=== PATIENT | female | born 1935 | race Caucasian/White ===

== ENCOUNTER 2023-08-11 06:16 | Day surgery (SDC) | payer OTHER, SELFPAY ==
[2023-08-11] VITALS (10 sets, daily range): BP systolic 97–147; BP diastolic 58–78; BMI 29.0
[2023-08-11] MEDS: NORMOSOL-R 1000 IV (11:11)
--- NOTE | 2023-08-11 15:07 | W.IMMPOSTOP ---
Surgical Immed Post Op Note
-
Primary Surgeon: Denyfer
Assisting Surgeon:none
Pre-op Diagnosis: Neurogenic bladder
Post-op Diagnosis: same
Procedure Performed: cysto, suprapubic tube
Anesthesia Type: MAC
Specimen / Cultures: none
Estimated Blood Loss: 3cc
Complications: none
Operative Findings: well placed 18Fr [place] catheter
[2023-08-11] MEDS: DILAUDID 0.25 MG IV ×4 (15:11→15:38)
--- NOTE | 2023-08-11 16:18 | PTCARENOTE ---
Patient received from PACU in bed; Surgical site assessed with LINUX ENGINEER, suprapubic site with gauze C/D/I; Patient oriented to unit and call anderson use; Call anderson within reach; Bed in lowest position, wheels locked; Assessment ongoing
[2023-08-11] MEDS: LOVENOX 40 MG SC (17:49)
[2023-08-11] MEDS: LOPRESSOR 25 MG PO (21:10)
[2023-08-11] MEDS: NEURONTIN 400 MG PO (21:11)
[2023-08-11] MEDS: TYLENOL 650 MG PO (21:20)
[2023-08-11] MEDS: DETROL 1 MG PO (21:24)
[2023-08-11] MEDS: ULTRAM 50 MG PO (22:50)
[2023-08-12 03:09] VITALS: BP 141/85
[2023-08-12] MEDS: TYLENOL 650 MG PO ×2 (03:46→09:03)
[2023-08-12 06:25] LABS: Hematocrit 34.8 % (37.0-47.0); Mean Corp Hgb Conc. 31.6 g/dL (33.0-37.0); Mean Corpuscular Hgb 30.4 pg (27.0-31.0); Mean Corpuscular Volume 96.1 fL (81.0-99.0); Mean Platelet Volume 8.7 fL (7.4-10.4); Platelet Count 248 10^3/uL (130-400); Red Blood Cell Count 3.62 10^6/uL (4.20-5.40); Red Cell Dist. Width 12.6 % (11.5-14.5)
[2023-08-12 06:39] LABS: Blood Urea Nitrogen 14 mg/dl (7-17); Calcium 8.4 mg/dl (8.4-10.2); Carbon Dioxide 27 mmol/L (22-30); Chloride 100 mmol/L (98-107); Estimated Creatinine Clearance 60 ml/min; Glucose 140 mg/dl (70-99); Potassium 4.6 mmol/L (3.5-5.1); Sodium 133 mmol/L (135-145); eGFR > 60.00
[2023-08-12 07:19] VITALS: BP 146/90
[2023-08-12] MEDS: ELIQUIS 2.5 MG PO (08:57)
[2023-08-12] MEDS: PROTONIX 20 MG PO (08:57)
[2023-08-12] MEDS: ZOLOFT 25 MG PO (08:57)
[2023-08-12] MEDS: FEOSOL 325 MG PO (08:57)
[2023-08-12] MEDS: Pyridium 200 MG PO (08:57)
[2023-08-12] MEDS: LIPITOR 20 MG PO (08:58)
[2023-08-12] MEDS: ZYRTEC 5 MG PO (08:58)
[2023-08-12] MEDS: CARDIZEM CD 120 MG PO (08:58)
[2023-08-12] MEDS: LOPRESSOR 25 MG PO (08:59)
[2023-08-12] MEDS: DEMADEX 5 MG PO (08:59)
[2023-08-12] MEDS: KCL 20 MEQ PO (08:59)
--- NOTE | 2023-08-12 10:14 | W.PN.URO.CBU ---
Today's Communication / Plan
-
Discharge
Assessment / Plan
-
88F with neurogenic bladder
admitted post op from SPT placement to monitor for bleeding given shortened time off anticoagulation per plan with her auction block clerk
Telemetry for permanent afib
No bleeding or hematuria
Restart Eliquis
Discharge today, follow up 6 weeks for tube change
Diagnosis
-
Date of Service: August 12, 2023
-
Patient Diagnosis:
Neurogenic bladder
History of stroke requiring early restarting of anticoagulation
Post Op Day: 1 s/p suprapubic tube placement
Subjective
-
pain controlled overnight
no hematuria
tolerating diet
Objective
-
Vital Signs
Temp Pulse Resp BP Pulse Ox
98.6 F 90 16 140/100 95
08/12/23 07:19 08/12/23 08:59 08/12/23 07:19 08/12/23 08:59 08/12/23 07:19
Intake and Output
08/11/23 08/12/23 08/13/23
06:59 06:59 06:59
Intake Total 460 / 460
Output Total 675 / 675
Balance -215 / -215
Intake:
Oral fluids 360 / 360
IV fluids (Total) 100 / 100
normo 100 / 100
Output:
Urine, [place] 550 / 550
Suprapubic output 125 / 125
Laboratory Results
08/12/23 04:50
08/12/23 04:50
Physical Exam
-
General - well developed, well nourished, no acute distress
Chest - clear bilaterally
Abdomen - soft, non-tender, SPT in place with clear urine
Genitalia - normal
Skin - warm & dry with no rash
Neuro - AOx3
Incision - clean, dry
Dressing - clean, dry, intact
[2023-08-12 10:26] VITALS: BP 131/84
[2023-08-12] MEDS: LANOXIN 125 MCG PO (11:24)
[2023-08-12 12:00] VITALS: BP 123/68
--- NOTE | 2023-08-12 16:46 | CM ---
met with patient at bedside.she lives at [facility] amb with a walker,she needs A with bathing.her pcp is dr flowers and facility supplies meds.she has never had a vn and has not been toip rehab in past.she is adm for suprapubic tube
insertion and is stable to dc home with no vn.patient and son both declined vn telling cm she has r[facility].son to [facility] home.patient signed cortes letter placed in chart.
== END 2023-08-12 14:39 ==
LOC: SDS 06:16
PROVIDERS: ATTENDING PHYSICIAN Urology
DX: R33.9 Retention of urine, unspecified (principal); N31.9 Neuromuscular dysfunction of bladder, unspecified
CPT/HCPCS: 51040; 80048; 85027

== ENCOUNTER → 2023-10-12 12:18 | Outpatient (REF) | payer OTHER, SELFPAY | LOC: HWRAD 12:18 | PROVIDERS: ATTENDING PHYSICIAN Urology; FAMILY PHYSICIAN Family Medicine | DX: R33.9 Retention of urine, unspecified (principal); N13.30 Unspecified hydronephrosis | CPT/HCPCS: 76775 ==

== ENCOUNTER 2024-06-23 00:21 | Emergency (ER) | payer OTHER, SELFPAY ==
[2024-06-23 00:40] VITALS: BP 142/79
[2024-06-23 06:04] VITALS: BP 149/75
[2024-06-23 06:05] VITALS: BMI 31.4
--- NOTE | 2024-06-23 06:34 | ED.GENMED ---
History of Present Illness
General
Chief Complaint: Catheter/Tube Problem
Time Seen by Provider: 06/23/24 06:34
History of Present Illness
History of Present Illness:
TIME OF INITIAL ENCOUNTER: 6:40 AM
HPI: The patient had an SP tube exchange 3 days ago. She feels that she is leaking urine from the urethra. SP tube originally placed by Dr. Stallworth 08/11/2023 due to incomplete bladder emptying and urinary incontinence. She reports lower abdominal
discomfort. 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
EXAM:
GENERAL: Well appearing in minimal distress
HEENT: Moist oral mucosa
CARDIOVASCULAR: No murmurs, normal heart rate, regular rhythm, No chest wall tenderness
PULMONARY: No respiratory distress, breath sounds are clear and equal
ABDOMEN: Soft with no peritoneal signs, mild suprapubic tenderness, SP tube in place draining small amount of cloudy urine in the catheter tubing/bag
NEUROLOGIC: Excellent strength all extremities, no coordination deficits
PSYCHIATRIC: Appropriate mental status, normal insight and judgement
EXTREMITIES: Nontender, no edema, moves all extremities equally
SKIN: No rash, no lesions
NUMBER AND COMPLEXITY OF PROBLEMS ADDRESSED AT THE ENCOUNTER
� Chronic conditions affecting care: A-fib status post watchman, CAD, high blood pressure, frequent UTIs
� Acute Exacerbation and/or Progression of Chronic Illness: This is an acute problem
� Differential Diagnosis includes: UTI, pyelonephritis, vital signs are not consistent with sepsis, SP tube malfunction
AMOUNT AND/OR COMPLEXITY OF DATA TO BE REVIEWED AND ANALYZED
� I performed an independent evaluation of and my interpretation is:
EKG:
CT: CT shows diverticulosis with no evidence of kidney stone
X-rays:
Laboratory Studies: Urinalysis suggest infection�this urine was obtained as the initial specimen after the new catheter was placed.
Other:
� Review of other/old records: I reviewed records, the patient had a SP tube placed initially 08/11/2023
� Clinical information was obtained by an independent historian: I spoke to the daughter at bedside
� Prescriptions/Medications Considered but not given:
� Further testing considered but not performed:
RISK OF COMPLICATIONS AND/OR MORBIDITY OR MORTALITY OF PATIENT MANAGEMENT
� Social determinants of health affecting care: Resides at a care home facility
� Discussion with other providers:
� Escalation of care including admission/observation vs risk of discharge considered: The patient presents with lower abdominal discomfort along with dysuria when the urine drained spontaneously from her urethra. This been
ongoing since the SP tube was placed.
ANY OTHER UPDATES:
10 AM: I spoke to granddaughter again. She will take patient home. Will start on Cipro for urinary tract infection. Most recent renal function from July of last year was normal. Well-appearing on reassessment.
Past History
Past History
ED Past Medical History: Arrthythmia, CAD (with stent), CVA, HTN, Hypercholesterolemia, Other (GI bleeding) and Other (hx diverticulitis and external hemorrhoids)
ED Past Surgical History: Appendectomy, Cardiac (Watchman) and Gynecological
Social History
Tobacco: Non-smoker
Alcohol: Occasional
Drug: None
Living: alone
Family History
Family History: CAD
Phy Exam
Physical Exam
Physical Exam:
See HPI
Course
Orders/Labs/Results
Orders:
Orders
06/23/24 06:43
Bladder Scan- Treatment ONCE
06/23/24 07:32
Urinalysis Reflex To Culture Urgent
Date Specimen was Collected: 06/23/24
Time Specimen was Collected: 07:12
Urine Microscopic Reflex Cult Urgent
Urine Culture Urgent
JORDAN Source: U
Specimen Description:
Date Specimen was Collected: 06/23/24
Time Specimen was Collected: 07:12
06/23/24 07:49
CT Abd/pel Without Iv Or Oral Urgent
Comment:
Reason For Exam: lower pain before and after SP exchange
Acetaminophen [Tylenol] 1,000 mg PO NOW STA
06/23/24 10:00
Ciprofloxacin HCl [Cipro] 500 mg PO NOW STA
Abnormal Lab Results
06/23/24
07:32
Ur Occult Blood Reflex 4+ A
(Negative)
Leukocyte Esterase Rfl 3+ A
(Negative)
Urine RBC 21-25 A /HPF
(0-2)
Urine WBC (Reflex) 40-50 A /HPF
(0-5)
Urine Bacteria (Reflex) Few A
(Negative)
Urine Albumin (Reflex) 3+ A
(Neg - Trace)
Vital Signs
Initial and Last Documented VS:
Initial Vital Signs
Temp Pulse Resp BP Pulse Ox
36.8 C 70 20 142/79 96
06/23/24 00:40 06/23/24 00:40 06/23/24 00:40 06/23/24 00:40 06/23/24 00:40
Last Documented Vital Signs
Temp Pulse Resp BP Pulse Ox
36.6 C 79 16 143/87 94
06/23/24 06:04 06/23/24 08:46 06/23/24 08:46 06/23/24 08:46 06/23/24 08:46
*Critical Care Note
Total Time (30-74mins, 75-104mins- exclusive of procedures): Not Applicable
ED Attending Note
-
Portions of this chart may have been created with voice recognition software.� Occasional wrong word or��sound alike� substitutions may have occurred due to the inherent limitations of voice recognition software.
Discharge Plan
Departure
Patient Disposition: Home (Routine Discharge)
Date of Disposition: 06/23/24
Time of Disposition: 10:03
Patient with high blood pressure during this ER visit?: Yes
Discharge Problem:
Urinary tract infection
Instructions: Urinary tract infections in adults, How to care for a suprapubic catheter, BLOOD PRESSURE
Prescriptions:
New
ciprofloxacin HCl [Cipro] 500 mg tablet
500 mg PO BID Qty: 14 0RF
No Action
acetaminophen [Tylenol] 325 mg Tablet
650 mg PO Q4HPRN PRN (Reason: mild pain/fever>100.4F)
gabapentin 400 mg Capsule
400 mg PO HS
hydrocortisone acetate 25 mg Suppository
25 mg VT [id number] PRN (Reason: external hemorrhoids)
ferrous sulfate 325 mg (65 mg iron) Tablet
325 mg PO DAILY
diltiazem HCl 120 mg Capsule,Extended Release 24hr
120 mg PO DAILY
digoxin 125 mcg (0.125 mg) Tablet
125 mcg PO MOWEFRSA
metoprolol tartrate 25 mg Tablet
25 mg PO BID
Rx Instructions:
04/16/2023, hold for SBP less than 100 and Diastolic less than 60.
diclofenac sodium 1 % Gel
1 ea TOPICAL Q4H PRN (Reason: back/neck pain)
Rx Instructions:
04/16/2023, apply to back or joint pain.
Hemorrhoidal Hygiene 50 % Pads, Medicated
1 pad TOPICAL Q4HPRN PRN (Reason: hemorrhoidal discomfort after BMs)
Rx Instructions:
04/16/2023, apply to rectal area.
cranberry extract 250 mg Capsule
500 mg PO DAILY
apixaban 2.5 mg Tablet
2.5 mg PO BID
nitroglycerin 0.4 mg Tablet, Sublingual
0.4 mg SUBLINGUAL Q5-15M PRN (Reason: angina)
Rx Instructions:
04/16/2023, give up to two doses 5 minutes apart.
Systane Gel 0.4-0.3 % Drops,Gel
1 drp ophthalmic (eye) Q6HPRN PRN (Reason: dry eyes)
Rx Instructions:
04/16/2023, instill 1 drop in both eyes.
atorvastatin 20 mg Tablet
20 mg PO DAILY
cetirizine [Zyrtec] 10 mg Tablet
5 mg PO DAILY
lidocaine 5 % Cream
1 applic TOPICAL BID
tolterodine [Detrol] 1 mg Tablet
1 mg PO Q12H PRN (Reason: bladder spasms)
phenazopyridine 200 mg Tablet
200 mg PO DAILY
tramadol 50 mg Tablet
50 mg PO Q6H PRN (Reason: moderate pain)
acetaminophen [Tylenol 8 Hour] 650 mg Tablet Extended Release
1,300 mg PO Q12H
pantoprazole 20 mg Tablet,Delayed Release (Dr/Ec)
20 mg PO DAILY
torsemide 5 mg Tablet
5 mg PO DAILY
sertraline [Zoloft] 25 mg Tablet
25 mg PO DAILY
dextromethorphan-guaifenesin [Delsym Cough-Chest Congest DM] 5-100 mg/5 mL Liquid
5 ml PO Q12H PRN (Reason: cough/cold)
phenyleph-shark [id number] Cream
1 applic topical Q6H
Preparation H (Witch Nila) 50 % Pads, Medicated
1 pad TOPICAL Q4H PRN (Reason: after each BM)
potassium chloride 20 mEq Tablet Extended Release
20 meq PO DAILY
Icy Hot Patch (lido-menthol)
1 unit topical Q12H PRN (Reason: pain)
Metamucil
1 tsp PO DAILY
Referrals:
William Hopkins DO [Family Provider] -
Dick Stallworth MD [Active] - As needed
Activity Restrictions/Additional Instructions:
I did place a new suprapubic catheter. We obtained urine from the new catheter and there is suggestion of infection. A urine culture is pending. Will start Cipro to treat urinary tract infection. CAT scan did not show any signs of kidney stones
or any other cause for pain. Return here if worse or other concerns. I also recommend that you follow-up with Dr. Stallworth.
Interventions
Interventions:
*Risk Screen - Suicide Last Done: 06/23/24 00:40
*General Assessment Last Done: 06/23/24 00:40
*Neglect/Abuse Screening Last Done: 06/23/24 00:40
ED- Fall Risk Assessment Last Done: 06/23/24 00:40
*ED COVID-19 Vaccine History Last Done: 06/23/24 00:40
ML-Vvjuti-Htcjozyzbn Assessment Last Done: 06/23/24 07:00
ED-Female Genitourinary Assessment Last Done: 06/23/24 07:00
Discharge Date and Time
Print Language: FRENCH
[2024-06-23 07:50] LABS: Urine Albumin 3+ (Neg - Trace); Urine Bilirubin Negative (Negative); Urine Character Slightly Cloudy (Clear); Urine Color Yellow; Urine Glucose Negative (Negative); Urine Ketone Negative (Negative); Urine Leukocyte 3+ (Negative); Urine Nitrite Negative (Negative); Urine Occult Blood 4+ (Negative); Urine Urobilinogen Negative (Neg - 1+)
[2024-06-23 08:04] LABS: Urine Red Blood Cell 21-25 /HPF (0-2); Urine White Cell 40-50 /HPF (0-5)
[2024-06-23 08:05] LABS: Urine Bacteria Few (Negative)
[2024-06-23] MEDS: TYLENOL 1000 MG PO (08:32)
[2024-06-23 08:46] VITALS: BP 143/87
--- NOTE | 2024-06-23 10:00 | EDRN ---
Dr. Juarez in room w/ pt.
--- NOTE | 2024-06-23 10:15 | ED.ADDNOTE ---
ED Addendum
ED Addendum
ED Addendum Note:
PROCEDURE NOTE:
Old SP tube removed and then under sterile technique, new 18Fr SP tube placed w/o difficulty in one attempt be me, Dr. Juarez
[2024-06-23] MEDS: CIPRO 500 MG PO (10:29)
[2024-06-23 10:35] VITALS: BP 148/81
--- NOTE | 2024-06-23 10:56 | EDRN ---
Bag chanced to Leg bag prior to discharge at pt's request. Pt assisted to dress at this time. Daughter is taking pt back to [place] where pt is asstisted Living.
--- NOTE | 2024-06-23 11:09 | EDRN ---
Daughter told this RN pt lives a [facility] assisted [facility]. Address in chart is a private home. Unable to call report to facility at this time.
== END 2024-06-23 10:59 | disposition home or self-care (01) ==
LOC: EMR 00:21
PROVIDERS: EMERGENCY PHYSICIAN Emergency Medicine; FAMILY PHYSICIAN Family Medicine
DX: N39.0 Urinary tract infection, site not specified (principal); I25.10 Atherosclerotic heart disease of native coronary artery without angina pectoris; E78.00 Pure hypercholesterolemia, unspecified; Z86.73 Personal history of transient ischemic attack (TIA), and cerebral infarction without residual deficits; Z95.5 Presence of coronary angioplasty implant and graft; Z93.59 Other cystostomy status; Z79.01 Long term (current) use of anticoagulants; Z87.19 Personal history of other diseases of the digestive system
CPT/HCPCS: 99284; 74176; 81003; 81015; 87077; 87086; 87147; 87186